=== PATIENT | male | born 2000 | race Caucasian/White ===

== ENCOUNTER 2023-04-10 12:00 | Emergency (ER) | payer BC, SELFPAY ==
[2023-04-10 12:06] VITALS: BP 171/109; PULSE 77; RESP 18; TEMP 36.9; O2SAT 96; BMI 38.3
--- NOTE | 2023-04-10 12:15 | CT_ITS ---
The [address] [address] Patient Name: JARED TRAORE MRN: [id number] date: 2000 Sex: M Assigned Patient Location: ER Current Patient Location: ER Accession/Order Number: [id number] Exam Date: 04/10/2023 12:38 Report Date: 04/10/2023 13:08 At the request of: MALLORY [place] Procedure: CT abdomen pelvis w con EXAM: CT abdomen pelvis w con HISTORY: right sided abd pain COMPARISON: None. TECHNIQUE: Helical CT images from the lung bases through the symphysis pubis were obtained with contrast. Coronal and sagittal reformatted images were generated at a workstation for further assessment. FINDINGS: Lower chest: No consolidation. No pleural effusion or pneumothorax. Liver: No suspicious liver lesions. Portal veins appear patent. Gallbladder: No gallstones. No evidence of acute cholecystitis. Spleen: Normal size. Pancreas: No suspicious pancreatic lesions. The pancreatic duct is not dilated. Adrenal glands: No adrenal nodules. Kidneys: A 2 mm stone is seen in the distal right ureter, just proximal to the UVJ. There is mild right-sided hydroureteronephrosis, and decreased right renal enhancement and swelling. There are 2 additional, tiny nonobstructing stones in the inferior right kidney measuring 1-2 mm. A small simple appearing cyst is seen in the anterior left kidney. No left-sided renal or ureteral stones. Bladder / Pelvic organs: Unremarkable. Bowel: No bowel wall thickening. The appendix is unremarkable. Lymph nodes: No retroperitoneal, mesenteric, or pelvic lymphadenopathy. Peritoneum / Retroperitoneum: No free fluid or air within the abdomen. Vessels: No infrarenal aortic aneurysm. Bones and soft tissues: No suspicious lesion in the bones. CT/CT abdomen pelvis w con IMPRESSION: 1. Obstructing 2 mm stone in the distal right ureter Electronically authenticated by: THADDEUS IRBY Date: 04/10/2023 13:08
[2023-04-10 12:31] LABS: Basophils Percent Auto 0.5 % (0.2-2.0); Eosinophils Absolute Auto 0.1 10^3/uL (0.0-0.7); Eosinophils Percent Auto 0.9 % (0.9-7.0); Hematocrit 47.3 % (42.0-54.0); Hemoglobin 15.9 g/dL (14.0-18.0); Immature Granulocytes Abs Auto 0.02 10^3/uL (0.00-0.03); Immature Granulocytes Pct Auto 0.3 % (0.0-0.5); Lymphocytes Absolute Auto 1.8 10^3/uL (1.2-3.8); Mean Corpuscular HGB Conc 33.6 g/dL (29.9-35.2); Mean Corpuscular Hemoglobin 29.1 pg (25.9-34.0); Mean Corpuscular Volume 86.6 fL (80.0-94.0); Mean Platelet Volume 10.3 fL (9.5-13.5); Monocytes Absolute Auto 0.5 10^3/uL (0.3-0.8); Monocytes Percent Auto 6.6 % (1.7-12.0); Neutrophils Absolute Auto 5.2 10^3/uL (1.4-6.5); Neutrophils Percent Auto 67.7 % (43.0-75.0); Platelet Count 301 10^3/uL (150-450); Red Blood Count 5.46 10^6/uL (4.70-6.10); Red Cell Distribution Width 11.9 % (11.0-15.0); White Blood Count 7.6 10^3/uL (4.0-11.0)
[2023-04-10] MEDS: KETOROLAC TROMETHAMINE 30 MG/ML VIAL IVP (12:31)
[2023-04-10] MEDS: ONDANSETRON PF 4 MG/2 ML VIAL IV (12:31)
[2023-04-10] MEDS: 0.9 % SODIUM CHLORIDE 1,000 ML 999 ML IV (12:32)
[2023-04-10 12:44] LABS: Alanine Aminotransferase 69 U/L (16-63); Albumin Globulin Ratio 1.1; Albumin Level 4.2 g/dL (3.4-5.0); Alkaline Phosphatase 85 U/L (46-116); Aspartate Amino Transferase 27 U/L (15-37); BUN Creatinine Ratio 12.7; Bilirubin Total 0.5 mg/dL (0.2-1.0); Calcium 9.5 mg/dL (8.5-10.1); Carbon Dioxide 29.9 mmol/L (21.0-32.0); Chloride 104 mmol/L (98-107); Estimated GFR (African America >60 (>=60); Estimated GFR (Non-African Ame >60 (>=60); Globulin 3.8 g/dL; Glucose 119 mg/dL (74-106); Potassium 3.9 mmol/L (3.5-5.1); Sodium 142 mmol/L (136-145)
[2023-04-10 12:51] VITALS: BP 158/86
[2023-04-10 12:58] LABS: Bilirubin Urine SMALL (NEGATIVE); Blood Urine LARGE (NEGATIVE); Clarity Urine CLEAR (CLEAR); Color Urine BROWN (YELLOW); Glucose Urine UA NEGATIVE (NEGATIVE); Ketones Urine NEGATIVE (NEGATIVE); Leukocyte Esterase Urine NEGATIVE (NEGATIVE); Nitrite Urine NEGATIVE (NEGATIVE); Protein Urine 30 mg/dL (NEG/TRACE); Specific Gravity Urine >=1.030 (1.005-1.025); pH Urine 5.5 (5.0-9.0)
--- NOTE | 2023-04-10 13:17 | ED_ITS ---
HPI - Abdominal Pain General Chief Complaint: Abdominal Pain Stated Complaint: R ABD PAIN Time Seen by Provider: 04/10/23 12:04 Source: patient Mode of arrival: walk-in Limitations: no limitations History of Present Illness HPI narrative: Patient suddenly developed right lower abdominal pain with associated nausea. He is crying on arrival due to the pain. Nothing taken at home for the pain. No history of kidney stones. He still has his appendix. No trauma to the area or activity to account for the pain. Related Data Previous Rx's Medication Instructions Recorded ketorolac 10 mg tablet 10 mg PO Q8H PRN pain #14 tabs 04/10/23 ondansetron 4 mg disintegrating 4 mg PO Q6H PRN nausea and 04/10/23 tablet vomiting #14 tabs tamsulosin 0.4 mg capsule (Flomax) 0.4 mg PO DAILY #10 caps 04/10/23 Allergies Allergy/AdvReac Type Severity Reaction Status Date / Time No Known Drug Allergies Allergy Verified 04/10/23 12:06 Exam Narrative Exam Narrative: Nurses notes and vital signs reviewed and patient is not hypoxic. afebrile General: uncomfortable. Skin: Warm, dry, no pallor noted. No rash. Head: Normocephalic, atraumatic. Neck: Supple, non-tender. Eye: Pupils are equal, round and EOMI. No scleral icterus. Ears, Nose, Mouth, and Throat: Oral mucosa is moist Cardiovascular: Regular Rate and Rhythm without murmur, gallop or rub. Respiratory: No accessory muscle use or respiratory distress. Lungs are clear to auscultation, no wheezing, rales or rhonchi Back: No CVA tenderness Musculoskeletal: normal ROM GI: Abdomen is soft, non-distended. Normal bowel sounds. No masses appreciated. Right sided abdominal tenderness to palpation. No rebound, guarding, or rigidity noted. Neurological: A&O x4. No cranial nerve dysfunction observed. No truncal ataxia. Moves all extremities. Sensation intact. Psychiatric: Cooperative and interactive. Normal mood and affect. Constitutional Vital Signs, click to edit/add: Last Vital Signs Temp 98.5 F 04/10/23 12:06 Pulse 77 04/10/23 12:06 Resp 18 04/10/23 12:06 BP 171/109 H 04/10/23 12:06 Pulse Ox 96 04/10/23 12:06 O2 Del Method Room Air 04/10/23 12:06 Course Vital Signs Vital signs: Vital Signs Temperature 98.5 F 04/10/23 12:06 Pulse Rate 77 04/10/23 12:06 Respiratory Rate 18 04/10/23 12:06 Blood Pressure 171/109 H 04/10/23 12:06 Pulse Oximetry 96 04/10/23 12:06 Oxygen Delivery Method Room Air 04/10/23 12:06 Temperature 98.5 F 04/10/23 12:06 Pulse Rate 77 04/10/23 12:06 Respiratory Rate 18 04/10/23 12:06 Blood Pressure 171/109 H 04/10/23 12:06 Pulse Oximetry 96 04/10/23 12:06 Oxygen Delivery Method Room Air 04/10/23 12:06 MDM - Abdominal Pain MDM Narrative Medical decision making narrative: Peripheral IV established and blood drawn and sent for testing. The patient ordered to receive IV Toradol. He was sent for CT scanning of the abdomen pelvis with IV contrast. CBC is unremarkable. CMP and lipase likewise negative. CT scan reveals an obstructing 2 mm stone in the distal right ureter. Patient informed of results and given reassurance. We discussed treatment and out-patient follow up with urologist. Prescribed flomax, toradol and zofran. Lab Data Attestation: I reviewed the patient's lab results. Labs: Lab Results 04/10/23 Range/Units 12:20 WBC 7.6 (4.0-11.0) 10^3/uL RBC 5.46 (4.70-6.10) 10^6/uL Hgb 15.9 (14.0-18.0) g/dL Hct 47.3 (42.0-54.0) % MCV 86.6 (80.0-94.0) fL MCH 29.1 (25.9-34.0) pg MCHC 33.6 (29.9-35.2) g/dL RDW 11.9 (11.0-15.0) % Plt Count 301 (150-450) 10^3/uL MPV 10.3 (9.5-13.5) fL Neut % (Auto) 67.7 (43.0-75.0) % Lymph % (Auto) 24.0 (20.5-60.0) % Willacy % (Auto) 6.6 (1.7-12.0) % Eos % (Auto) 0.9 (0.9-7.0) % Baso % (Auto) 0.5 (0.2-2.0) % Neut # (Auto) 5.2 (1.4-6.5) 10^3/uL Lymph # (Auto) 1.8 (1.2-3.8) 10^3/uL Willacy # (Auto) 0.5 (0.3-0.8) 10^3/uL Eos # (Auto) 0.1 (0.0-0.7) 10^3/uL Baso # (Auto) 0.0 (0.0-0.1) 10^3/uL Abs Immat Gran (auto) 0.02 (0.00-0.03) 10^3/uL Imm/Tot Granulo (auto) 0.3 (0.0-0.5) % Sodium 142 (136-145) mmol/L Potassium 3.9 (3.5-5.1) mmol/L Chloride 104 (98-107) mmol/L Carbon Dioxide 29.9 (21.0-32.0) mmol/L Anion Gap 12.0 BUN 16.0 (7.0-18.0) mg/dL Creatinine 1.26 (0.70-1.30) mg/dL Est GFR ( Amer) >60 (>=60) Est GFR (Non-Af Amer) >60 (>=60) BUN/Creatinine Ratio 12.7 Glucose 119 H (74-106) mg/dL Calcium 9.5 (8.5-10.1) mg/dL Total Bilirubin 0.5 (0.2-1.0) mg/dL AST 27 (15-37) U/L ALT 69 H (16-63) U/L Alkaline Phosphatase 85 (46-116) U/L Total Protein 8.0 (6.4-8.2) g/dL Albumin 4.2 (3.4-5.0) g/dL Globulin 3.8 g/dL Albumin/Globulin Ratio 1.1 Lipase 22.0 (16.0-77.0) U/L Imaging Data CT scan - abdomen: Radiologist's impression: ITS Impressions Abdomen/Pelvis CT 04/10/23 12:15 IMPRESSION: 1. Obstructing 2 mm stone in the distal right ureter Electronically authenticated by: THADDEUS IRBY Date: 04/10/2023 13:08 Discharge Plan Discharge Chief Complaint: Abdominal Pain Clinical Impression: Calculus of distal right ureter Patient Disposition: Home, Self-Care Time of Disposition Decision: 13:19 Prescriptions / Home Meds: New ketorolac 10 mg tablet 10 mg PO Q8H PRN (Reason: pain) Qty: 14 0RF tamsulosin [Flomax] 0.4 mg capsule 0.4 mg PO DAILY Qty: 10 0RF ondansetron 4 mg tablet,disintegrating 4 mg PO Q6H PRN (Reason: nausea and vomiting) Qty: 14 0RF Instructions: Renal Colic (ED), Ureteral Stones (ED) Stand Alone Forms: Portal Instructions Referrals: Buddy Francois MD [Physician] - As needed
[2023-04-10 13:22] LABS: Urine Microscopic Indicated YES
[2023-04-10 13:25] LABS: Bacteria Urine NONE SEEN #/HPF (NONE SEEN); Mucus Urine TRACE (NONE SEEN); RBC Urine >100 #/HPF (0-2); WBC Urine NONE SEEN #/HPF (NONE SEEN)
[2023-04-10 13:26] LABS: Squamous Epithelial Cell Urine FEW #/LPF (NONE/RARE)
[2023-04-10 13:30] LABS: Urine Culture Indicated NO
[2023-04-10 13:42] VITALS: BP 149/68
== END 2023-04-10 14:02 | disposition home or self-care (01) ==
PROVIDERS: Emergency Provider Emergency Medicine; PCP Internal Medicine
DX: N20.1 Calculus of ureter (principal)
CPT/HCPCS: 36415; 74177; 80053; 81001; 83690; 85025; 96374; 96375; 99285; J1885; J2405; Q9967

== ENCOUNTER 2023-04-17 08:01 | Outpatient (OUT) | payer BC, SELFPAY ==
--- OUTSIDE RECORDS SUMMARY | 2023-04-17 08:04 | XMS_ITS | CCD ---
Author Name Unknown Address [address] [place] [address] Organization [facility] Care Team Providers Care High Lighter Name Role Phone MEGHAN BRIGGS Primary Care Unavailable RALPH BRENNER Admitting Unavailable RALPH BRENNER Attending Unavailable ZIEBMUNIR, SANTOS R Consulting Unavailable GRECHNY, MALISSA Consulting Unavailable HULL, BOB Admitting Unavailable HULL, BOB Attending Unavailable MEGHAN BRIGGS Primary Care Unavailable ZIEBER, SANTOS R Consulting Unavailable HULL, BOB Consulting Unavailable HULL, BOB Admitting Unavailable HULL, BOB Attending Unavailable HULL, BOB Consulting Unavailable HULL, BOB Admitting Unavailable HULL, BOB Attending Unavailable MEGHAN BRIGGS Primary Care Unavailable ZIEBER, SANTOS R Consulting Unavailable HULL, BOB Consulting Unavailable SARAH, JUAN Admitting Unavailable SARAH, JUAN Attending Unavailable SARAH, JUAN Consulting Unavailable Problems Active Problems Problem Classification Problem Date Documented Da te Episodic/Chronic Administrative/social admission (4 sources) Encounter for pre-employment examination; Translations: [ENCOUNTER FOR PRE-EMPLOYMENT EXAM] Onset: 10-03-2019 Episodic External cause codes: Cut/green (1 source) Contact with other powered hand tools and household machinery, initial encounter; Translations: [CONTACT OT POWER HT AND MACH INIT] Onset: 01-08-2019 Past or Other Problems Problem Classification Problem Date Documented Da te Episodic/Chronic Fracture of upper limb (6 sources) Displaced fracture of distal phalanx of left index finger, subsequent encounter for fracture with routine healing; Translations: [Displaced fracture of distal phalanx of left index finger, initial encounter for open fracture] Onset: 01-08-2019 Episodic Immunizations and screening for infectious disease (1 source) Encounter for immunization; Translations: [ENCOUNTER FOR IMMUNIZATION] Onset: 01-08-2019 Episodic Open wounds of extremities (3 sources) Laceration without foreign body of left little finger with damage to nail, initial encounter; Translations: [Laceration without foreign body of left index finger with damage to nail, initial encounter] Onset: 01-06-2019 Episodic Other connective tissue disease (4 sources) Pain in left finger(s); Translations: [PAIN IN LEFT FINGERS] Onset: 05-27-2019 Episodic Results Test Name Value Interpretation Reference Range Facil ity QUANTIFERON TB GOLD PLUS (NO N-INC)on 10-07-2019 Comment Incubation performed. Normal [facility] Comment on above: Performed By: #### Q NTTBG #### [facility] [address] [place] [address] Emmanuelle Elizabeth Criteria Comment Normal [facility] Comment on above: Result Comment: The QuantiFERON-TB Gold Plus result is determined by subtracting the Nil value from either TB antigen (Ag) tube. The mitogen tube serves as a control for the test. Performed By: #### Q NTTBG #### [facility] [address] [place] [address] Emmanuelle Elizabeth Mitogen Value 5.13 IU/mL Normal [facility] Comment on above: Performed By: #### Q NTTBG #### [facility] [address] [place] [address] Emmanuelle Elizabeth Nill Value 0.04 IU/mL Normal [facility] Comment on above: Performed By: #### Q NTTBG #### [facility] [address] [place] [address] Emmanuelle Elizabeth Quantiferon Gold Plus Negative Normal Negative [facility] Comment on above: Performed By: #### Q NTTBG #### [facility] [address] [place] [address] Emmanuelle Elizabeth TB1 Ag Value 0.03 IU/mL Normal [facility] Comment on above: Performed By: #### Q NTTBG #### [facility] [address] [place] [address] Emmanuelle Elizabeth TB2 Ag Value 0.02 IU/mL Normal [facility] Comment on above: Performed By: #### Q NTTBG #### [facility] [address] [place] [address] Emmanuelle Elizabeth HEPATITIS B SURFACE ANTIBODY , QUANTon 10-04-2019 Hepatitis B Surf AB Quant 13.4 mIU/mL Normal Immunity>9.9 [facility] Comment on above: Result Comment: Stat us of Immunity Anti-HBs Level Inconsistent with Immunity 0.0 - 9.9 Consistent with Immunity >9.9 Performed By: #### H EPBSRF #### [facility] [address] [place], [place] [id number] Emmanuelle Johnson MMR IMMUNITYon 10-04-2019 Mumps Abs, IgG 99.9 AU/mL Normal Immune >10.9 [facility] Comment on above: Result Comment: Nega tive <9.0 Equivocal 9.0 - 10.9 Positive >10.9 A positive result generally indicates past exposure to Mumps virus or previous vaccination. Performed By: #### M MRIMMU #### [facility] [address] [place] [address] Emmanuelle Johnson Rubella Antibodies, IgG 2.20 index Normal Immune >0.99 [facility] Comment on above: Result Comment: Non- immune <0.90 Equivocal 0.90 - 0.99 Immune >0.99 Performed By: #### M MRIMMU #### [facility] [address] [place], [place] [id number] Emmanuelle Johnson Rubeola Ab, IgG 86.4 AU/mL Normal Immune >16.4 [facility] Comment on above: Result Comment: Nega tive <13.5 Equivocal 13.5 - 16.4 Positive >16.4 Presence of antibodies to Rubeola is presumptive evidence of immunity except when acute infection is suspected. Performed By: #### M MRIMMU #### [facility] [address] [place] [id number] Emmanuelle Johnson VARICELLA IGG ABon 0 Varicella Zoster IgG 3149 index Normal Immune >165 [facility] Comment on above: Result Comment: Nega tive <135 Equivocal 135 - 165 Positive >165 A positive result generally indicates exposure to the pathogen or administration of specific immunoglobulins, but it is not indication of active infection or stage of disease. Performed By: #### Mau ZARATE #### [facility] [address] [place], [place] [address] Emmanuelle Johnson XR FINGER MIN 2 VIEWSon 05-17 XR FINGER MIN 2 VIEWS PROCEDURE: XR FINGER MIN 2 VIEWS HISTORY: Broken finger follow-up fracture of second digit of left hand COMPARISON: 03/07/2019 left finger radiographs FINDINGS: BONES:No fracture, acute abnormality, or significant arthropathy. Separate fracture fragments involving the tuft of the left hand second digit distal phalanx. SOFT TISSUES:No visible soft tissue swelling. EFFUSION:None visible. OTHER: Negative. IMPRESSION: 1. Incomplete osseous union of the separate fracture fragments of the distal phalanx of the second digit. Normal [facility] XR FINGER MIN 2 VIEWSon 02-17 XR FINGER MIN 2 VIEWS Patient: JARED TRAORE. Exam Date: 03/07/2019 : 2000 Gender:M Ordering : MR BOB HULL . Admission #: [id number] Family : DR MEGHAN BRIGGS D.O. Order #: [id number] CLICK HERE TO VIEW EXAM RADIOLOGY REPORT 2019 CORRECTION: ADMISSION # AND ORDER # WERE CORRECTED (vmagyar) PROCEDURE: RADIOGRAPH FINGER(S) MIN 2 VIEWS COMPARISON: XR FINGER MIN 2 VIEWS, 01/15/2019. INDICATIONS: Subsequent imaging for left index finger fracture after injury on table saw. FINDINGS: BONES: Again demonstrated is a complex fracture involving the tuft of the 2nd distal phalanx, some interval sclerosis suggests healing, bridging of the sclerosis is not yet identified. No new fracture or dislocation SOFT TISSUES: No visible soft tissue swelling or radiopaque foreign body. OTHER: Negative. CONCLUSION: 1. Stable healing fracture tuft of the 2nd distal phalanx Dictated by: Be Gao M.D. on 03/07/2019 at 13:10 Approved by: Be Gao M.D. on 03/07/2019 at 13:11 Normal [facility] XR FINGER MIN 2 VIEWSon 12-19 XR FINGER MIN 2 VIEWS Patient: JARED TRAORE. Exam Date: 01/15/2019 : 2000 Gender:M Ordering : MR BOB HULL . Admission #: [id number] Family : DR MEGHAN BRIGGS D.O. Order #: [id number] CLICK HERE TO VIEW EXAM RADIOLOGY REPORT PROCEDURE: RADIOGRAPH FINGER(S) MIN 2 VIEWS COMPARISON: XR FINGER MIN 2 VIEWS, 01/06/2019. INDICATIONS: Fracture of distal phalanx of finger, subsequent imaging FINDINGS: BONES: Stable alignment of the comminuted, separate fracture fragments of the tuft of the 2nd distal phalanx. No intra-articular extension. No new fracture. SOFT TISSUES: Bandage covering the tip of the 2nd digit. No radiopaque foreign body. OTHER: Negative. CONCLUSION: 1. Stable comminuted, separate fracture of the 2nd digit distal phalanx. Dictated by: Santos Kim M.D. on 01/15/2019 at 17:06 Approved by: Santos Kim M.D. on 01/15/2019 at 17:09 [facility] XR FINGER MIN 2 VIEWSon 12-18 XR FINGER MIN 2 VIEWS Patient: JARED TRAORE Exam Date: 01/06/2019 : 2000 Gender:M Ordering : JULIO KIM Admission #: [id number] Family : Order #: [id number] CLICK HERE TO VIEW EXAM RADIOLOGY REPORT PROCEDURE: RADIOGRAPH FINGER(S) MIN 2 VIEWS COMPARISON: None. INDICATIONS: Acute laceration of distal left 2 phlanx of injury FINDINGS: BONES: Complete separation of the tuft of the distal phalanx of the 2nd digit with innumerable tiny bone fragments consistent with fracture/laceration. No involvement of the proximal aspect of the distal phalanx or articular surface. SOFT TISSUES: Soft tissue laceration involving the tip of the 2nd digit. OTHER: Negative. CONCLUSION: 1. Soft tissue injury to the tip of the 2nd digit of the left hand with markedly comminuted displaced fractures of the tuft of the distal phalanx. No metallic foreign body. Dictated by: Santos Kim M.D. on 01/06/2019 at 13:55 Approved by: Santos Kim M.D. on 01/06/2019 at 13:58 [facility] Encounters Encounter Date Encounter Type Care Provider Facility Start: 10-03-2019 End: 10-04-2019 Patient encounter procedure JUAN SMITH Facility: Start: 05-27-2019 End: 05-28-2019 Patient encounter procedure BOB HULL Facility:[facility] Start: 03-07-2019 End: 03-08-2019 Patient encounter procedure BOB HULL Facility:[facility] Start: 01-15-2019 End: 01-16-2019 Patient encounter procedure BOB HULL Facility:[facility] Start: 01-06-2019 End: 01-06-2019 Patient encounter procedure MEGHAN BRIGGS Facility:[facility] Payers Date Payer Category Payer Unknown [id number] 2000 Unknown [id number] [id number] [id number] 1967 Unknown [id number] 2.16.84 [id number] 1967 Unknown [id number] 2.16.84 [id number] 1967 Unknown [id number] 2.16.84 [id number] 1959 Self-pay 1958 Unknown [id number] Unknown [id number] 2.16.84 [id number] Summary Purpose Family History No Family History Records Found Advance Directives No Advanced Directives Records Found Additional Source Comments (unrecognized sect ion and content) No Status Records Found INFORMATION SOURCE (unrecogn ized section and content) DATE CREATED AUTHOR 10/11/2019 [facility] FOR RECORDS PERTAINING TO PATIENTS WHO ARE OR HAVE BEEN ENROLLED IN A CHEMICAL DEPENDENCY/SUBSTANCEABUSE PROGRAM, SOME INFORMATION MAY BE OMITTED. This clinical summary was aggregated from multiple sources. Caution should be exercised in using it in the provision of clinical care. This summary normalizes information from multiple sources, and as a consequence, information in this document may materially change the coding, format and clinical context of patient data. In addition, data may be omitted in some cases. CLINICAL DECISIONS SHOULD BE BASED ON THE PRIMARY CLINICAL RECORDS. [facility] [employer] provides no warranty or guarantee of the accuracy or completeness of information in this document.
--- NOTE | 2023-04-17 08:16 | XR_ITS ---
The [address] [address] Patient Name: JARED TRAORE MRN: [id number] date: 2000 Sex: M Assigned Patient Location: RAD Current Patient Location: RAD Accession/Order Number: [id number] Exam Date: 04/17/2023 08:12 Report Date: 04/17/2023 09:13 At the request of: MAVIS SANTA Procedure: XR abdomen 1V EXAM: XR abdomen 1V HISTORY: Ureteral Stone COMPARISON: None. TECHNIQUE: AP view of the abdomen. FINDINGS: Nonobstructive bowel gas pattern is noted. There is no suspicious calcification. The osseous structures are intact. XR/XR abdomen 1V IMPRESSION: Nonobstructive bowel gas pattern. No suspicious renal calcification. This is better demonstrated on recent CT abdomen pelvis dated 04/10/2023 Electronically authenticated by: ADAM FLORES Date: 04/17/2023 09:13
== END 2023-04-17 08:02 | disposition home or self-care (01) ==
LOC: RAD 08:02
PROVIDERS: PCP Internal Medicine; Visit Provider Urology
DX: N20.1 Calculus of ureter (principal)
CPT/HCPCS: 74018

== ENCOUNTER 2024-05-27 14:39 | Outpatient (OUT) | payer BC, SELFPAY ==
--- OUTSIDE RECORDS SUMMARY | 2024-05-27 14:54 | XMS_ITS | CCD ---
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 Role Phone MEGHAN BRIGGS Primary Care Unavailable RALPH BRENNER Admitting Unavailable RALPH BRENNER Attending Unavailable SANTOS KIM Consulting Unavailable MALISSA LUGO Consulting Unavailable HULL, BOB Admitting Unavailable HULL, BOB Attending Unavailable MEGHAN BRIGGS Primary Care Unavailable RAFAL, SANTOS R Consulting Unavailable HULL, BOB Consulting Unavailable HULL, BOB Admitting Unavailable HULL, BOB Attending Unavailable HULL, BOB Consulting Unavailable HULL, BOB Admitting Unavailable HULL, BOB Attending Unavailable MEGHAN BRIGGS Primary Care Unavailable RAFAL, SANTOS R Consulting Unavailable HULL, BOB Consulting Unavailable SARAH, JUAN Admitting Unavailable JUAN SMITH Attending Unavailable SARAH, JUAN Consulting Unavailable MEGHAN BRIGGS Primary Care Physician Buddy SANTA Attending Unavailable Buddy SANTA Attending Unavailable Allergies Allergy Classification Reported Allergen(s) Allergy Type Date of Onset Reaction(s) Facility (1 source) No Known Medication Allergies; Translations: [No Known Medication Allergies] Propensity to adverse reactions (disorder) [facility] Repository Medications Current Medications Medication Drug Class(es) Dates Sig (Normalized) Sig (Original) Ibuprofen (2 sources) Nonsteroidal Anti-inflammatory Drug Start: 04-17-2023 ibuprofen Start Date: 04/17/23 Status: Ordered tamsulosin hydrochloride 0.4 mg oral capsule (2 sources) alpha-Adrenergic Inés Start: 04-17-2023 take 1 capsule by mouth once daily Flomax 0.4 mg Cap 0.4 mg = 1 cap(s), Oral, Daily Start Date: 04/17/23 Status: Ordered Problems Active Problems Problem Classification Problem Date Documented Date Episodic/Chronic Administrative/social admission (4 sources) Encounter for pre-employment examination; Translations: [ENCOUNTER FOR PRE-EMPLOYMENT EXAM] Onset: 10-03-2019 Episodic Calculus of urinary tract (1 source) Kidney stone; Translations: [Calculus of kidney] Onset: 04-17-2023 Episodic External cause codes: Cut/green (1 source) Contact with other powered hand tools and household machinery, initial encounter; Translations: [CONTACT OTH POWER HT AND HH MACH INIT] Onset: 01-08-2019 Other diseases of kidney and ureters (1 source) Urinary tract obstruction; Translations: [Hydronephrosis with renal and ureteral calculous obstruction] Onset: 04-17-2023 Episodic Unclassified (2 sources) Obstructive hydronephrosis 04-17-2023 Past or Other Problems Problem Classification Problem [...] Name Value Interpretation Reference Range Facil ity RAD - CT Reporton 04-20-2023 RAD - CT Report [id number]#[id number] 0TIFF [facility] 04-18-2023 Forms [id number]. 00TIFF [facility] Ambulatory Visit Summaryon 0 04-17-2023 Ambulatory Visit Summary JARED TRAORE :2000 Visit Date:04/17/2023 Ambulatory Visit Instructions Your Diagnosis Kidney stone Ureteral stone with hydronephrosis Tests Performed XR Abdomen 1 View -- Results Pending -- Please visit your patient portal for your results or contact your primary care physician. Your Care Team Attending Physician - Buddy SANTA MD Primary Care Physician - MEGHAN BRIGGS DO This Is Your Medications List Contact prescribing physician if questions or concerns ibuprofen tamsulosin (Flomax 0.4 mg Cap) Discharge Vitals Heart Rate (Peripheral) 77 Blood Pressure 139/91 Height 187 cm Height 74 in Weight 138.9 kg Weight 305.58 lb BMI 39.72 What to do next Scheduled Follow-Up Appointments Sunday 3:00 PM EDT With: Buddy SANTA MD Where: [facility] 04-17-2023 Forms [id number] 0TIFF [facility] Patient Educationon 04-17-19 24 Patient Education Nephrology Dietary Guidelines to Help Prevent Kidney Stones Kidney stones are deposits of minerals and salts that form inside your kidneys. Your risk of developing kidney stones may be greater depending on your diet, your lifestyle, the medicines you take, and whether you have certain medical conditions. Most people can lower their risks of developing kidney stones by following these dietary guidelines. Your dietitian may give you more specific instructions depending on your overall health and the type of kidney stones you tend to develop. What are tips for following this plan? Reading food labels ? Choose foods with no salt added or low-salt labels. Limit your salt (sodium) intake to less than 1,500 mg a day. ? Choose foods with calcium for each meal and snack. Try to eat about 300 mg of calcium at each meal. Foods that contain 200?500 mg of calcium a serving include: ? 8 oz (237 mL) of milk, mhjcjtu-azrzddlajuvr-i airy milk, and calcium-fortifiedfruit juice. Calcium-fortified means that calcium has been added to these drinks. ? 8 oz (237 mL) of kefir, yogurt, and soy yogurt. ? 4 oz (114 g) of tofu. ? 1 oz (28 g) of cheese. ? 1 cup (150 g) of dried figs. ? 1 cup (91 g) of cooked broccoli. ? One 3 oz (85 g) can of sardines or mackerel. Most people need 1,000?1,500 mg of calcium a day. Talk to your dietitian about how much calcium is recommended for you. Shopping ? Buy plenty of fresh fruits and vegetables. Most people do not need to avoid fruits and vegetables, even if these foods contain nutrients that may contribute to kidney stones. ? When shopping for convenience foods, choose: ? Whole pieces of fruit. ? Pre-made salads with dressing on the side. ? Low-fat fruit and yogurt smoothies. ? Avoid buying frozen meals or prepared deli foods. These can be high in sodium. ? Look for foods with live cultures, such as yogurt and kefir. ? Choose high-fiber grains, such as whole-wheat breads, oat bran, and wheat cereals. Cooking ? Do not add salt to food when cooking. Place a salt shaker on the table and allow each person to add their own salt to taste. ? Use vegetable protein, such as beans, textured vegetable protein (TVP), or tofu, instead of meat in pasta, casseroles, and soups. Meal planning ? Eat less salt, if told by your dietitian. To do this: ? Avoid eating processed or pre-made food. ? Avoid eating fast food. ? Eat less animal protein, including cheese, meat, poultry, or fish, if told by your dietitian. To do this: ? Limit the number of times you have meat, poultry, fish, or cheese each week. Eat a diet free of meat at least 2 days a week. ? Eat only one serving each day of meat, poultry, fish, or seafood. ? When you prepare animal proteins, cut pieces into small portion sizes. For most meat and fish, one serving is about the size of the palm of your hand. ? Eat at least five servings of fresh fruits and vegetables each day. To do this: ? Keep fruits and vegetables on hand for snacks. ? Eat one piece of fruit or a handful of berries with breakfast. ? Have a salad and fruit at lunch. ? Have two kinds of vegetables at dinner. ? You may be told to limit foods that are high in a substance called oxalate. These include: ? Spinach (cooked), rhubarb, beets, sweet potatoes, and [place] chard. ? Peanuts. ? Potato chips, divehi fries, and baked potatoes with skin on. ? Nuts and nut products. ? Chocolate. ? If you regularly take a diuretic medicine, make sure to eat at least 1 or 2 servings of fruits or vegetables that are high in potassium each day. These include: ? Avocado. ? Banana. ? [place], prune, carrot, or tomato juice. ? Baked potato. ? Cabbage. ? Beans and split peas. Lifestyle ? Drink enough fluid to keep your urine pale yellow. This is the most important thing you can do. Spread your fluid intake throughout the day. ? If you drink alcohol: ? Limit how much you have to: ? 0?1 drink a day for women who are not . ? 0?2 drinks a day for men. ? Know how much alcohol is in your drink. In the [place] one drink equals one 12 oz bottle of beer (355 mL), one 5 oz glass of wine (148 mL), or one 1? oz glass of hard liquor (44 mL). ? Lose weight if told by your health care provider. Work with your dietitian to find an eating plan and weight loss strategies that work best for you. General information ? Talk to your health care provider and dietitian about taking daily supplements. Depending on your health and the cause of your kidney stones, you may be told: ? Do not take high-dose supplements of vitamin C (1,000 mg a day or more). ? To take a calcium supplement. ? To take a daily probiotic supplement. ? To take other supplements such as magnesium, fish oil, or vitamin B6. ? Take vmlv-gmi-cwxgtua and prescription medicines only as told by your health care provider. These include supplements. What foods sh (more content not included)... Normal [facility] RAD - MISCon 04-17-2023 RAD - MIS [id number] 0TIFF [facility] Urology Office/Clinic Noteon 04-17-2023 Urology Office/Clinic Note Chief Complaint New Pt HPI Staff New Pt. Pt was seen at [facility] on 04/10/[address] to [address] SCAN 04/10/23. KUB 04/17/22 -[facility] Dysuria: denies pain or burning Incomplete bladder emptying: denies Hematuria: denies visible blood, UA shows LARGE Frequency: denies Urgency: denies Nocturia: denies Stream: denies hesitancy, denies weak stream Leaking: denies Post void dripping: denies Wearing pads/ Depends: denies Urge incontinence: denies Stress incontinence: denies Incontinence without Sensory Awareness: denies Abdominal pain: denies Flank pain: denies Sexual complaints: denies History of Present Illness Tests reviewed: reviewed UA and External Records. I have reviewed the previous health record information and history for this patient from External Provider. I have reviewed and verified the staff HPI to be accurate for this encounter. There have been no associated fever, chills, flank pain, or blood in the urine. Denies any urinary infections since last encounter. Review of Systems ROS - Provider Constitutional: denies weight loss, denies hot flashes. Eyes: denies eye problems. Gastrointestinal: denies nausea, denies vomiting. Cardiovascular: denies chest pain or angina. Integumentary: no dryness Musculoskeletal: denies musculoskeletal symptoms. ENMT: denies otolaryngeal symptoms. Respiratory: no shortness of breath. Heme/Lymph: denies easy bleeding tendency, denies easy bruising tendency. Psychiatric: no confusion, no anxiety. Genitourinary: See HPI. Physical Exam Vitals & Measurements HR: 77(Peripheral) BP: 139/91 HT: 74 in HT: 187 cm WT: 138.9 kg WT: 305.58 lb BMI: 39.72 General Appearance: alert, no distress, well nourished, well developed male. Head: normocephalic . Eyes: normal orbit and globe. ENMT: normal examination of external ears. Chest: Lungs CTA, respirations non labored. Cardiovascular: regular rate and rhythm. Abdomen: soft, non distended, no tenderness, no mass or organomegaly, no hernia. Genitourinary: normal scrotum, normal testes, normal urethra, normal epididymis, normal vas deferens/spermatic cord. Flank Pain: none. Bladder: nonpalpable. Penis: normal shaft, normal glans. Lymph Nodes: unremarkable palpation of the cervical area. Skin: warm, dry, no bruising. Psychiatric: cooperative, affect appropriate for age, normal judgement, euthymic mood. Assessment/Plan 1. Kidney stone (N20.0: Calculus of kidney) Pt was seen at [facility] on 04/10/[address] due to abdominal [address] CT AP w/Con 04/10/23 - 2 additional stones, tiny nonobstructing stones in the inferior Rt kidney measuring 1-2mm. KUB 04/17/22 -[facility] UA today shows large blood and small leuks. Discussed doing a stone workup, including a 24 hour urine and blood work. Will continue to monitor. Follow up in 6 mos w/KUB. All questions/concerns were discussed. Pt to call the office if he encounters any issues prior. Pt acknowledges understanding. -Continue to drink plenty of fluids. -Will order LithoLink. Will call pt with results. -Will order KUB. 2. Ureteral stone with hydronephrosis (N13.2: Hydronephrosis with renal and ureteral calculous obstruction) CT AP w/Con 04/10/23 - 2mm distal Rt stone in the distal Rt ureter, proximal to the UVJ with mil Rt-sided hydro Pt states that he thinks he had passed the stone this morning, pain resolved this morning. Denies any flank pain or abdominal pain. Pt states that he had some pain last night prior to bed. Counseled pt on the chances of him passing the stone noted on the CT. Advised pt that if he does not catch the stone, we will schedule to have a cysto to possibly go up and retrieve it. Advised pt that if he does catch the stone, we could send it for a stone analysis to add to the stone workup. -Continue straining urine. The patient had been in the ER about a week ago with significant right-sided flank pain and was found to have a 2 mm right distal ureteral stone as well as 2 small 2 mm stones in the right kidney. His pain dissipated just this morning. He has not yet passed the stone but continues to strain the urine. Hopefully he will catch the stones we can send it for analysis. Most of our discussion was centered on stone prevention and they agreed to proceed with 24-hour urine analysis and some blood work for metabolic workup. Push the fluids at this point to keep hydrated and follow-up 6 months with a KUB to follow the 2 mm stones known to be in the right kidney Follow-up With When Contact Information ARINA MAC, Buddy Rubio, URL In [address] [address]- Additional Instructions: w/KUB Patient Education Dietary Guidelines to Help Prevent Kidney Stones I, Gogo Perez, personally scribed for Dr. Santa on 04/17/2023 10:02:37. . Documentation recorded by the scribGogo wilson, accurately reflects the services(s) I performed a (more content not included)... Normal [facility] Comment on above: Result Comment: Elec tronically Signed By: Buddy SANTA MD\.br\Date and Time Signed: 04/17/23 10:04 EST\.br\Electronically Co-Signed By: Gogo Perez\.br\Date and Time Co-Signed: 04/17/23 10:02 EST ED Note-Physicianon 04-16-19 ED Note-Physician [id number] TIFF [facility] Physician Orderon 04-13-2023 Physician Order [id number]#1.0 0TIFF [facility] QUANTIFERON TB GOLD PLUS (NO N-INC)on 10-07-2019 Comment Incubation performed. Normal [facility] Comment on above: Performed By: #### Q NTTBG #### [facility] [address] [address] Emmanuelle Johnson Criteria Comment Normal [facility] Comment on above: Result Comment: The QuantiFERON-TB Gold Plus result is determined by subtracting the Nil value from either TB antigen (Ag) tube. The mitogen tube serves as a control for the test. Performed By: #### Q NTTBG #### [facility] [address] [address] Emmanuelle Johnson Mitogen Value 5.13 IU/mL [facility] Comment on above: Performed By: #### Q NTTBG #### [facility] [address] [place] [address] Emmanuelle Johnson Nill Value 0.04 IU/mL Normal [facility] Comment on above: Performed By: #### Q NTTBG #### [facility] [address] [place] [address] Emmanuelle Johnson Quantiferon Gold Plus Negative Normal Negative [facility] Comment on above: Performed By: #### Q NTTBG #### [facility] [address] [place] [address] Emmanuelle Johnson TB1 Ag Value 0.03 IU/mL Normal [facility] Comment on above: Performed By: #### Q NTTBG #### [facility] [address] [place] [address] Emmanuelle Johnson TB2 Ag Value 0.02 IU/mL Normal [facility] Comment on above: Performed By: #### Q NTTBG #### [facility] [address] [place] [address] Emmanuelle Johnson HEPATITIS B SURFACE ANTIBODY , QUANTon 10-04-2019 Hepatitis B Surf AB Quant 13.4 mIU/mL Normal Immunity>9.9 [facility] Comment on above: Result Comment: Stat us of Immunity Anti-HBs Level Inconsistent with Immunity 0.0 - 9.9 Consistent with Immunity >9.9 Performed By: #### H EPBSRF #### [facility] [address] [place] [address] Emmanuelle Johnson MMR IMMUNITYon 10-04-2019 Mumps Abs, IgG 99.9 AU/mL Normal Immune >10.9 [facility] Comment on above: Result Comment: Nega tive <9.0 Equivocal 9.0 - 10.9 Positive >10.9 A positive result generally indicates past exposure to Mumps virus or previous vaccination. Performed By: #### M MRIMMU #### [facility] [address] [place] [address] Emmanuelle Johnson Rubella Antibodies, IgG 2.20 index Normal Immune >0.99 [facility] Comment on above: Result Comment: Non- immune <0.90 Equivocal 0.90 - 0.99 Immune >0.99 Performed By: #### M MRIMMU #### [facility] [address] [place] [address] Emmanuelle Johnson Rubeola Ab, IgG 86.4 AU/mL Normal Immune >16.4 [facility] Comment on above: Result Comment: Nega tive <13.5 Equivocal 13.5 - 16.4 Positive >16.4 Presence of antibodies to Rubeola is presumptive evidence of immunity except when acute infection is suspected. Performed By: #### M MRIMMU #### [facility] [address] [place] [address] Emmanuelle Johnson VARICELLA IGG ABon 0 Varicella Zoster IgG 3149 index Normal Immune >165 [facility] Comment on above: Result Comment: Nega tive <135 Equivocal 135 - 165 Positive >165 A positive result generally indicates exposure to the pathogen or administration of specific immunoglobulins, but it is not indication of active infection or stage of disease. Performed By: #### V ARCEL #### [facility] [address] [place] [address] Emmanuelle Johnson XR FINGER MIN 2 VIEWSon [...] phalanx of the second digit. Normal [facility] XR FINGER MIN 2 VIEWSon 02-17 XR FINGER MIN 2 VIEWS Patient: JARED TRAORE. Exam Date: 03/07/2019 : 2000 Gender:M Ordering : MR BOB HULL . Admission #: [id number] Family : DR MEGHAN BRIGGS D.O. Order #: [id number] CLICK HERE TO VIEW EXAM RADIOLOGY REPORT [...] M.D. on 03/07/2019 at 13:11 Normal [facility] XR FINGER MIN 2 VIEWSon 12-19 XR FINGER MIN 2 VIEWS Patient: JARED TRAORE Exam Date: 01/15/2019 : 2000 Gender:M Ordering : MR BOB HULL . Admission #: [id number] Family : DR MEGHAN BRIGGS D.O. Order #: [id number] CLICK HERE TO VIEW EXAM RADIOLOGY REPORT [...] Santos Kim M.D. on 01/15/2019 at 17:09 Normal [facility] XR FINGER MIN 2 VIEWSon 12-18 XR FINGER MIN 2 VIEWS Patient: JARED TRAORE Exam Date: 01/06/2019 : 2000 Gender:M Ordering : JULIO KIM Admission #: [id number] Family : Order #: [id number] CLICK HERE TO VIEW EXAM RADIOLOGY REPORT [...] Santos Kim M.D. on 01/06/2019 at 13:58 Normal [facility] Vital Signs Date Time Vital Sign Value Performing Clinician Margaritai taco 04-17-2023 09:24-0500 Blood Pressure Location Buddy SANTA [facility] 04-17-2023 09:24-0500 Diastolic blood pressure 91 mm[Hg] Buddy SANTA [facility] 04-17-2023 09:24-0500 Heart rate 77 /min Buddy SANTA [facility] 04-17-2023 09:24-0500 Systolic blood pressure 139 mm[Hg] Buddy SANTA [facility] Encounters Encounter Date Encounter Type Care Provider Facility Start: 10-16-2023 End: 10-16-2023 ambulatory Buddy SANTA Facility:[facility] Start: 10-16-2023 End: 10-16-2023 Patient encounter procedure Buddy SANTA [facility] Start: 04-17-2023 End: 04-17-2023 ambulatory Buddy SANTA Facility:[facility] Start: 04-17-2023 End: 04-17-2023 Patient encounter procedure Buddy SANTA [facility] Start: 04-12-2023 ambulatory Buddybrooks SANTA Facility:[facility] Start: 10-03-2019 End: 10-04-2019 Patient encounter procedure JUAN SMITH Facility:[facility] Start: 05-27-2019 End: 05-28-2019 Patient encounter procedure BOB HULL Facility:[facility] Start: 03-07-2019 End: 03-08-2019 Patient encounter procedure BOB HULL Facility:[facility] Start: 01-15-2019 End: 01-16-2019 Patient encounter procedure BOB HULL Facility:[facility] Start: 01-06-2019 End: 01-06-2019 Patient encounter procedure MEGHAN BRIGGS Facility:[facility] Immunizations Immunization Date Immunization Notes Care Provider [facility] 08-31-2020 SARS-CoV-2 (COVID-19 ) mRNA BNT-162b2 vax Buddy SANTA [facility] 08-10-2020 SARS-CoV-2 (COVID-19 ) mRNA BNT-162b2 vax Buddy Team Apart [facility] 01-08-2019 HPV, unspecified formulation Buddy [employer] Apart [facility] 01-08-2019 varicella virus vaccine Buddy [employer] [facility] 07-10-2018 Hep A, unspecified formulation Sandag [facility] 07-10-2018 meningococcal ACWY vaccine, unspecified formulation BuddyEpisona [facility] 07-10-2018 tetanus toxoid, reduced diphtheria toxoid, and acellular pertussis vaccine, adsorbed Sandag [facility] 07-10-2018 varicella virus vaccine BuddyEpisona [facility] 06-13-2005 diphtheria, tetanus toxoids and acellular pertussis vaccine BuddyEpisona [facility] 06-13-2005 measles, mumps and rubella virus vaccine BuddyEpisona [facility] 06-13-2005 poliovirus vaccine, unspecified formulation Sandag [facility] 10-26-2002 hepatitis B vaccine, pediatric or pediatric/adolescent dosage BuddyEpisona [facility] 10-26-2002 Hib, unspecified formulation Sandag [facility] 10-26-2002 varicella virus vaccine BuddyEpisona [facility] 10-17-2002 DTaP, unspecified formulation Sandag [facility] 10-17-2002 measles, mumps and rubella virus vaccine BuddyEpisona [facility] 01-13-2002 DTaP, unspecified formulation Sandag [facility] 01-13-2002 Hib, unspecified formulation Sandag [facility] 2000 DTaP, unspecified formulation Sandag [facility] 2001 DTaP, unspecified formulation Sandag [facility] 2001 hepatitis B vaccine, pediatric or pediatric/adolescent dosage Buddy [employer] Apart [facility] 2000 Hib, unspecified formulation Buddy [employer] Apart [facility] 2001 hepatitis B vaccine, pediatric or pediatric/adolescent dosage Buddy [employer] Apart [facility] NEGATED: Highlighted row has not occurred!04-17-2023 influenza virus vaccine, unspecified formulation [employer] [facility] Payers Date Payer Category Payer Unknown [id number] 2019 Unknown [id number] 2001 Unknown [id number] 2.16.84 [id number] 2001 Unknown [id number] 2.16.8 [id number] 2001 Unknown [id number] 2.16.8 [id number] 1967 Unknown [id number] 2.16.84 [id number] 1967 Unknown [id number] 2.16.84 [id number] 1967 Unknown [id number] 2.16.84 [id number] 1959 Self-pay 1959 Unknown [id number] Unknown [id number] 2.16.84 [id number] Social History Date Type Detail Facility Start: 04-17-2023 Tobacco smoking status Never s moked tobacco (finding) [facility] Tobacco smoking status Never [facility] Sex Assigned At Male [facility] Functional Status Date Assessment Result Facility 04-17-2023 Functional Status N/A [facility] Hospital Discharge instructions 04-17-2023 Note Date & Type Note Facility 04-17-2023 Hospital Discharg e instructions Patient Education 04/17/2023 10:01:35 Dietary Guidelines to Help Prevent Kidney Stones Dietary Guidelines to Help Prevent Kidney Stones Kidney stones are deposits of minerals and salts that form inside your kidneys. Your risk of developing kidney stones may be greater depending on your diet, your lifestyle, the medicines you take, and whether you have certain medical conditions. Most people can lower their risks of developing kidney stones by following these dietary guidelines. Your dietitian may give you more specific instructions depending on your overall health and the type of kidney stones you tend to develop. What are tips for following this plan? Reading food labels Choose foods with no salt added or low-salt labels. Limit your salt (sodium) intake to less than 1,500 mg a day. Choose foods with calcium for each meal and snack. Try to eat about 300 mg of calcium at each meal. Foods that contain 200 500 mg of calcium a serving include: ?8 oz (237 mL) of milk, wwlgxib-yjzwyupsazkw-hxwvm milk, and calcium-fortifiedfruit juice. Calcium-fortified means that calcium has been added to these drinks. ?8 oz (237 mL) of kefir, yogurt, and soy yogurt. ?4 oz (114 g) of tofu. ?1 oz (28 g) of cheese. ?1 cup (150 g) of dried figs. ?1 cup (91 g) of cooked broccoli. ?One 3 oz (85 g) can of sardines or mackerel. Most people need 1,000 1,500 mg of calcium a day. Talk to your dietitian about how much calcium is recommended for you. Shopping Buy plenty of fresh fruits and vegetables. Most people do not need to avoid fruits and vegetables, even if these foods contain nutrients that may contribute to kidney stones. When shopping for convenience foods, choose: ?Whole pieces of fruit. ?Pre-made salads with dressing on the side. ?Low-fat fruit and yogurt smoothies. Avoid buying frozen meals or prepared deli foods. These can be high in sodium. Look for foods with live cultures, such as yogurt and kefir. Choose high-fiber grains, such as whole-wheat breads, oat bran, and wheat cereals. Cooking Do not add salt to food when cooking. Place a salt shaker on the table and allow each person to add their own salt to taste. Use vegetable protein, such as beans, textured vegetable protein (TVP), or tofu, instead of meat in pasta, casseroles, and soups. Meal planning Eat less salt, if told by your dietitian. To do this: ?Avoid eating processed or pre-made food. ?Avoid eating fast food. Eat less animal protein, including cheese, meat, poultry, or fish, if told by your dietitian. To do this: ?Limit the number of times you have meat, poultry, fish, or cheese each week. Eat a diet free of meat at least 2 days a week. ?Eat only one serving each day of meat, poultry, fish, or seafood. ?When you prepare animal proteins, cut pieces into small portion sizes. For most meat and fish, one serving is about the size of the palm of your hand. Eat at least five servings of fresh fruits and vegetables each day. To do this: ?Keep fruits and vegetables on hand for snacks. ?Eat one piece of fruit or a handful of berries with breakfast. ?Have a salad and fruit at lunch. ?Have two kinds of vegetables at dinner. You may be told to limit foods that are high in a substance called oxalate. These include: ?Spinach (cooked), rhubarb, beets, sweet potatoes, and [place] chard. ?Peanuts. ?Potato chips, divehi fries, and baked potatoes with skin on. ?Nuts and nut products. ?Chocolate. If you regularly take a diuretic medicine, make sure to eat at least 1 or 2 servings of fruits or vegetables that are high in potassium each day. These include: ?Avocado. ?Banana. ?[place], prune, carrot, or tomato juice. ?Baked potato. ?Cabbage. ?Beans and split peas. Lifestyle Drink enough fluid to keep your urine pale yellow. This is the most important thing you can do. Spread your fluid intake throughout the day. If you drink alcohol: ?Limit how much you have to: ?0 1 drink a day for women who are not . ?0 2 drinks a day for men. ?Know how much alcohol is in your drink. In the [place] one drink equals one 12 oz bottle of beer (355 mL), one 5 oz glass of wine (148 mL), or one 1 oz glass of hard liquor (44 mL). Lose weight if told by your health care provider. Work with your dietitian to find an eating plan and weight loss strategies that work best for you. General information Talk to your health care provider and dietitian about taking daily supplements. Depending on your health and the cause of your kidney stones, you may be told: ?Do not take high-dose supplements of vitamin C (1,000 mg a day or more). ?To take a calcium supplement. ?To take a daily probiotic supplement. ?To take other supplements such as magnesium, fish oil, or vitamin B6. Take ikuc-lcw-czgkfcj and prescription medicines only as told by your health care provider. These include supplements. What foods should I limit? Limit your intake of the following foods, or eat them as told by your dietitian. Vegetables Spinach. Rhubarb. Beets. Canned vegetables. Pickles. Olives. Baked potatoes with skin. Grains Wheat bran. Baked goods. Salted crackers. Cereals high in sugar. Meats and other proteins Nuts. Nut butters. Large portions of meat, poultry, or fish. Salted, precooked, or cured meats, such as sausages, meat loaves, and hot dogs. Dairy Cheeses. Beverages Regular soft drinks. Regular vegetable juice. Seasonings and condiments Seasoning blends with salt. Salad dressings. Soy sauce. Ketchup. Barbecue sauce. Other foods Canned soups. Canned pasta sauce. Casseroles. Pizza. Lasagna. Frozen meals. Potato chips. [place] fries. The items listed above may not be a complete list of foods and beverages you should limit. Contact a dietitian for more information. What foods should I avoid? Talk to your dietitian about specific foods you should avoid based on the type of kidney stones you have and your overall health. Fruits Grapefruit. The item listed above may not be a complete list of foods and beverages you should avoid. Contact a dietitian for more information. Summary Kidney stones are deposits of minerals and salts that form inside your kidneys. You can lower your risk of kidney stones by making changes to your diet. The most important thing you can do is drink enough fluid. Drink enough fluid to keep your urine pale yellow. Talk to your dietitian about how much calcium you should have each day, and eat less salt and animal protein as told by your dietitian. This information is not intended to replace advice given to you by your health care provider. Make sure you discuss any questions you have with your health care provider. Document Revised: 06/15/2022 Document Reviewed: 06/15/2022 [employer] Patient Education 2022 [employer]. Follow Up Care 04/12/2023 09:56:20 With:Buddy SANTA MD, URL Address: [address] [place], [place] [id number]- When:Within 6 Month(s) Comments:[facility] Evaluation + Plan note Note Date & Type Note Facility Evaluation + Plan note Future Appointments Appointment Date:10/16/2023 03:00:00 PM Scheduled Provider:Buddy SANTA MD Location:[facility] Appointment Type:URO Office Visit [facility] Hospital course Narrative Note Date & Type Note Facility Hospital course Narrative No data available for this section [facility] Hospital Discharge instructions Note Date & Type Note Facility Hospital Discharge instructions No data available for this section [facility] Progress note Note Date & Type Note Facility Progress note No data available for this section [facility] Summary Purpose Family History No Family History Records Found No data available for this section No data available for this section No Family History Records Found Advance Directives No Advanced Directives Records FoundNo Advanced Directives Records Found Additional Source Comments (unrecognized sect ion and content) No Status Records FoundNo Status Records Found INFORMATION SOURCE (unrecogn ized section and content) DATE CREATED AUTHOR 10/11/2019 [employer] DATE CREATED AUTHOR AUTHOR'S ANGELLAJUAN ATASMITA 10/19/2023 Linden Parker [facility] Patient Care team informatio n (unrecognized section and content) Personnel Name: MEGHAN BRIGGS DO Address: Address: [address] [place] [address], [facility] Kiki VALLES, [address] Personnel Name: MEGHAN BRIGGS DO Address: Address: [address] [place] [address], [facility] Kiki VALLES, [address] FOR RECORDS PERTAINING TO PATIENTS WHO ARE [...] BE BASED ON THE PRIMARY CLINICAL RECORDS. [facility] [employer] [facility]. provides no warranty or guarantee of the accuracy or completeness of information in this document.
[2024-05-27 15:13] LABS: Basophils Absolute Auto 0.1 10^3/uL (0.0-0.1); Basophils Percent Auto 0.9 % (0.2-2.0); Eosinophils Absolute Auto 0.1 10^3/uL (0.0-0.7); Eosinophils Percent Auto 1.5 % (0.9-7.0); Hematocrit 46.5 % (42.0-54.0); Hemoglobin 15.3 g/dL (14.0-18.0); Immature Granulocytes Abs Auto 0.01 10^3/uL (0.00-0.03); Immature Granulocytes Pct Auto 0.1 % (0.0-0.5); Lymphocytes Absolute Auto 1.8 10^3/uL (1.2-3.8); Lymphocytes Percent Auto 27.5 % (20.5-60.0); Mean Corpuscular HGB Conc 32.9 g/dL (29.9-35.2); Mean Corpuscular Hemoglobin 28.7 pg (25.9-34.0); Mean Corpuscular Volume 87.2 fL (80.0-94.0); Mean Platelet Volume 10.8 fL (9.5-13.5); Monocytes Absolute Auto 0.5 10^3/uL (0.3-0.8); Monocytes Percent Auto 6.7 % (1.7-12.0); Neutrophils Absolute Auto 4.2 10^3/uL (1.4-6.5); Neutrophils Percent Auto 63.3 % (43.0-75.0); Platelet Count 310 10^3/uL (150-450); Red Blood Count 5.33 10^6/uL (4.70-6.10); Red Cell Distribution Width 12.3 % (11.0-15.0); White Blood Count 6.7 10^3/uL (4.0-11.0)
[2024-05-27 15:50] LABS: Alanine Aminotransferase 63 U/L (16-63); Albumin Globulin Ratio 1.3; Albumin Level 4.4 g/dL (3.4-5.0); Alkaline Phosphatase 112 U/L (46-116); Anion Gap 13.4; Aspartate Amino Transferase 22 U/L (15-37); BUN Creatinine Ratio 11.6; Bilirubin Total 0.6 mg/dL (0.2-1.0); Calcium 9.8 mg/dL (8.5-10.1); Carbon Dioxide 28.5 mmol/L (21.0-32.0); Chloride 103 mmol/L (98-107); Chol HDL Ratio 2.8; Cholesterol 105 mg/dL (<=200); Estimated GFR (African America >60 (>=60 mL/min/1.73m^2); Estimated GFR (Non-African Ame >60 (>=60 mL/min/1.73m^2); Globulin 3.4 g/dL; Glucose 87 mg/dL (74-106); HDL Cholesterol 37 mg/dL (40-60); Potassium 3.9 mmol/L (3.5-5.1); Sodium 141 mmol/L (136-145); Total Protein 7.8 g/dL (6.4-8.2); Triglycerides 106 mg/dL (<=150); VLDL CHOLESTEROL 21.2 mg/dL
[2024-05-27 16:02] LABS: Estimated Average Glucose 100 mg/dL; Glycohemoglobin A1C 5.1 % (4.5-6.2)
== END 2024-05-27 14:40 | disposition home or self-care (01) ==
LOC: LAB 14:40
PROVIDERS: PCP Internal Medicine; Visit Provider Internal Medicine
DX: Z00.00 Encounter for general adult medical examination without abnormal findings (principal)
CPT/HCPCS: 36415; 80053; 80061; 83036; 85025